=== PATIENT | male | born 1960 | race Caucasian/White ===

== ENCOUNTER 2016-10-04 14:54 | Outpatient (CLI) | payer MEDICARE | END 2016-10-04 14:55 | LOC: LABLEX 14:54 | PROVIDERS: ATTEND Family Medicine | DX: N20.0 Calculus of kidney (principal) | CPT/HCPCS: 82365 ==

== ENCOUNTER 2018-04-09 08:14 | Outpatient (CLI) | payer MEDICARE ==
--- NOTE | 2018-04-09 11:21 | CT ---
CT LUMBAR SPINE WITHOUT CONTRAST: DATE: 04/09/18. COMPARISON: Comparison was made with a 04/26/15 CT, as well as MRI of the same date. FINDINGS: The prior studies showed a soft tissue density in the left neural foramen which on MRI was shown to b e a prominent left L5 root with slight hyperintensity. The possibility for radiculitis was previousl y raised. Today's exam was done using axial slices, then coronal and sagittal reconstructions. The patient has an epidural stimulator in place. Posterior surgical fusion of L5-S1 with pedicle scr ews bilaterally is noted as before. The L1 through L4 levels were unremarkable with no evidence of f ocal disk protrusions, foraminal stenosis, or central canal stenosis. At L5-S1, there is once again a soft tissue density in the left neural foramen that is fairly compara ble in appearance to the 2015 scan. Normally, the possibility of bleeding or fibrosis might be raise d as well as a soft tissue mass, but given that there has been no change in the appearance over time, this seems somewhat less likely. An MRI might be considered to assess it further. Streak artifact is present at this level from the pedicle screws which does somewhat compromise the study. The total cross-section al area of the spinal canal at the L5 level is somewhat reduced, but no significantly different than before. 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 Other incidental findings on the scan included bilateral nonobstructing renal calculi. An inferior v juan jose cava filter is present with its tip at the T12 level where the renal veins joint the IVC. It has not changed in position since 2015. IMPRESSION: Soft tissue density in the left neural foramen at L5-S1 that is comparable to the appearance of the scan. MRI would probably give a better assessment of its current makeup in better detail, but there were no findings to suggest a dramatic change in the appearance of the area over time. POS: HOME
== END 2018-04-09 08:15 | disposition home or self-care (01) ==
LOC: BURCT 08:14
PROVIDERS: ATTEND Specialist
DX: M96.1 Postlaminectomy syndrome, not elsewhere classified (principal)
CPT/HCPCS: 72131

== ENCOUNTER 2018-05-09 12:14 | Emergency (ER) | payer MEDICARE | END 2018-05-09 13:41 | disposition home or self-care (01) | LOC: BURERS 12:14 | DX: M79.2 Neuralgia and neuritis, unspecified (principal); K21.9 Gastro-esophageal reflux disease without esophagitis; Z86.711 Personal history of pulmonary embolism; F41.9 Anxiety disorder, unspecified; Z79.899 Other long term (current) drug therapy | CPT/HCPCS: 99283 ==

== ENCOUNTER 2018-05-20 13:01 | Outpatient (CLI) | payer MEDICARE | END 2018-05-20 13:02 | disposition home or self-care (01) | LOC: BURRAD 13:01 | PROVIDERS: ATTEND Nurse Practitioner | DX: M25.571 Pain in right ankle and joints of right foot (principal) ==

== ENCOUNTER 2018-07-10 14:03 | Outpatient (CLI) | payer MEDICARE ==
--- NOTE | 2018-07-10 16:55 | RAD ---
CHEST TWO VIEWS: 07/10/18 Comparison is made with the 09/18/17 portable film from [facility]. The heart is normal in size. The lungs are clear. No infiltrate, effusion or pulmonary edema was pres ent. The mediastinum appears normal. The trachea is midline. Epidural stimulator leads are noted post eriorly. IMPRESSION: No acute thoracic finding. POS: HOME
== END 2018-07-10 14:04 | disposition home or self-care (01) ==
LOC: BURRAD 14:03
PROVIDERS: ATTEND Specialist
DX: R06.02 Shortness of breath (principal)
CPT/HCPCS: 71046

== ENCOUNTER 2018-09-19 12:03 | Emergency (ER) | payer MEDICARE ==
[2018-09-19] MEDS ORDERED: Fentanyl 100 MCG/2 ML VIAL ONE (12:29)
[2018-09-19 12:35] LABS: #Basophils 0.1 thou/uL (0.0-0.2); #Eosinphils 0.1 thou/uL (0.0-0.7); #Lymphocytes 2.4 thou/uL (1.20-3.40); #Monocytes 0.5 thou/uL (0.11-0.59); #Neutrophils 3.8 thou/uL (1.40-6.50); %Basophils 1.4 % (0.0-1.0); %Eosinophils 2.1 % (0.0-10.0); %Lymphocytes 34.8 % (21.0-51.0); %Neutrophils 54.7 % (42.0-75.0); Hemoglobin 15.6 g/dL (14.0-18.0); Mean Corpuscular Hemoglobin 32.7 pg (27.0-31.0); Mean Corpuscular Volume 93.4 fL (78.0-98.0); Platelet Count 250 thou/uL (130-400); RBC Distribution Width 11.6 % (11.5-14.5); Red Blood Cell (RBC) Count 4.77 mill/uL (4.70-6.10); White Blood Cell (WBC) Count 6.9 thou/uL (4.8-10.8)
[2018-09-19 12:46] LABS: Bilirubin Negative (Negative); Blood, Urine Negative (Negative); Clarity Clear (Clear); Glucose, Urine (Dipstick) Negative (Negative); Leukocyte Negative (Negative); Nitrite Negative (Negative); Protein, Urine (Dipstick) Negative (Neg-Trace); Specific Gravity, Urine 1.029 (1.005-1.030); Urobilinogen 0.2 mg/dL (0.2-1.0); pH, Urine 5.5 (5.0-9.0)
[2018-09-19] MEDS ORDERED: Ondansetron PF 4 MG/2 ML Vial ONE (12:51)
[2018-09-19 12:52] LABS: ALT (SGPT) 27 U/L (8-55); AST (SGOT) 25 U/L (5-34); Albumin 4.4 g/dL (3.5-5.0); Alkaline Phosphatase 99 U/L (40-150); Anion Gap 14 mmol/L (10-20); BUN (Urea Nitrogen) 15 mg/dL (8.4-25.7); Bilirubin, Total 0.8 mg/dL (0.2-1.2); Calc. Creatinine Clearance 0 mL/min (70-130); Calcium 9.5 mg/dL (7.8-10.44); Carbon Dioxide 24 mmol/L (22-29); Chloride 105 mmol/L (98-107); Estimated GFR-MDRD 81; Glucose 95 mg/dL (70-105); Lipase 10 U/L (8-78); Potassium 4.3 mmol/L (3.5-5.1); Protein, Total 7.4 g/dL (6.0-8.3); Sodium 139 mmol/L (136-145)
[2018-09-19] MEDS ORDERED: methylPREDNISolone Sod Succ/PF 125 MG/2 ML VIAL ONE (13:57)
--- NOTE | 2018-09-19 22:34 | CT ---
CT ABDOMEN AND PELVIS WITH CONTRAST 09/19/18 Comparison is made with a prior study of 04/05/16. Axial slices were acquired followed by coronal and sagittal reconstructions. The top most slices do n ot show the entirety of the dome of the liver. The lung bases are clear except for some minimal scarr ing or atelectasis. The liver, spleen, pancreas, adrenal glands, and kidneys showed no acute findings . There has been a prior cholecystectomy. A small nonobstructing calcification is seen in the lower p ole of the left kidney, not a new finding. Aorta is normal in caliber. An IVC filter is in place. [place] ws tip is at the level of the renal veins. The bowel shows no distention, bowel wall thickening, or gerald-intestinal inflammatory change. Diverti culosis is present without diverticulitis. The appendix appears normal. No free air or free fluid was seen. CT of the pelvis shows no pelvic masses, fluid collection, or inflammatory change. Prostate was upper normal in size at 4.9 cm in diameter. IMPRESSION: No acute abdominal findings to explain the patient's symptoms. POS: HOME
== END 2018-09-19 14:44 | disposition home or self-care (01) ==
LOC: BURERS 12:03
DX: R10.32 Left lower quadrant pain (principal); K21.9 Gastro-esophageal reflux disease without esophagitis; Z86.718 Personal history of other venous thrombosis and embolism; F41.9 Anxiety disorder, unspecified; Z79.899 Other long term (current) drug therapy
CPT/HCPCS: 74177; 80053; 81003; 83605; 83690; 85025; 85652; 90853; 96374; 96375; J2405; J2930; J3010

== ENCOUNTER 2019-03-03 09:34 | Emergency (ER) | payer MEDICARE ==
[2019-03-03] MEDS ORDERED: HYDROmorphone 0.5 MG/0.5 ML SYRINGE ONE ×2 (10:06→11:09)
--- NOTE | 2019-03-03 18:14 | RAD ---
PELVIS ONE VIEW: 03/03/2019 FINDINGS: No fractures are seen. Some mild arthritic change is seen in the right hip. A total hip arthroplast y is seen on the left, and is unremarkable in appearance. The SI joints are symmetrical. The symphy sis shows no widening or offset. IMPRESSION: No significant finding. POS: HOME
--- NOTE | 2019-03-03 18:15 | RAD ---
LEFT HIP THREE VIEWS: 03/03/2019 COMPARISON: 02/06/2013 FINDINGS: There is a normal postoperative appearance to the left hip arthroplasty. There is no sign of looseni ng or infection around the hardware. There were no particular findings to explain pain. IMPRESSION: No significant findings. POS: HOME
== END 2019-03-03 11:20 | disposition home or self-care (01) ==
LOC: BURERS 09:34
DX: M25.552 Pain in left hip (principal); M79.89 Other specified soft tissue disorders; K50.90 Crohn's disease, unspecified, without complications; F41.9 Anxiety disorder, unspecified; F32.9 Major depressive disorder, single episode, unspecified; M19.90 Unspecified osteoarthritis, unspecified site; Z86.718 Personal history of other venous thrombosis and embolism; Z79.899 Other long term (current) drug therapy; Z79.1 Long term (current) use of non-steroidal anti-inflammatories (NSAID)
CPT/HCPCS: 72170; 96372; J1170

== ENCOUNTER 2019-10-14 18:29 | Emergency (ER) | payer MEDICARE ==
[2019-10-14 19:02] LABS: Bilirubin Negative (Negative); Blood, Urine Large (Negative); Clarity Clear (Clear); Glucose, Urine (Dipstick) Negative (Negative); Leukocyte Negative (Negative); Nitrite Negative (Negative); Protein, Urine (Dipstick) Negative (Neg-Trace); Urobilinogen 0.2 mg/dL (Less than 2)
[2019-10-14] MEDS ORDERED: Ondansetron PF 4 MG/2 ML Vial ONE (19:05)
[2019-10-14] MEDS ORDERED: Ketorolac Tromethamine 30 MG/ML VIAL ONE (19:05)
[2019-10-14 19:06] LABS: Bacteria/HPF None Seen HPF (None Seen); Broad Cast None Seen LPF (None Seen); Calcium Oxalate Crystals None Seen HPF (None Seen); Cellular Cast None Seen LPF (None Seen); Epithelial Cast None Seen LPF (None Seen); Fatty Cast None Seen LPF (None Seen); Mucous/LPF None Seen LPF (<2+); Other Casts None Seen LPF (None Seen); Oval Fat Bodies/HPF None Seen HPF (None Seen); Red Blood Cell Cast None Seen LPF (None Seen); Renal Epithelial None Seen HPF (None Seen); Sperm/HPF None Seen HPF (None Seen); Squamous Epithelial None Seen HPF (0-3); Transitional Epithelial None Seen HPF (None Seen); Trichomonas/HPF None Seen HPF (None Seen); Triple Phosphate Crystal None Seen HPF (None Seen); Unclassified Crystals None Seen HPF (None Seen); WBC/HPF None Seen HPF (0-3); Waxy Cast None Seen LPF (None Seen); White Blood Cell Cast None Seen LPF (None Seen); Yeast-Budding None Seen HPF (None Seen); Yeast-Hyphae None Seen HPF (None Seen)
[2019-10-14 19:30] LABS: #Basophils 0.1 thou/uL (0.0-0.2); #Eosinphils 0.1 thou/uL (0.0-0.7); #Lymphocytes 1.4 thou/uL (1.20-3.40); #Monocytes 0.6 thou/uL (0.11-0.59); #Neutrophils 3.5 thou/uL (1.40-6.50); %Basophils 1.3 % (0.0-1.0); %Eosinophils 2.1 % (0.0-10.0); %Lymphocytes 24.6 % (21.0-51.0); %Monocytes 10.1 % (0.0-10.0); %Neutrophils 61.9 % (42.0-75.0); Hemoglobin 14.1 g/dL (14.0-18.0); Mean Corpuscular HGB CONC 34.1 g/dL (32.0-36.0); Mean Corpuscular Hemoglobin 32.7 pg (27.0-31.0); Mean Platelet Volume 7.2 fL (7.4-10.4); Platelet Count 225 thou/uL (130-400); RBC Distribution Width 11.9 % (11.5-14.5); White Blood Cell (WBC) Count 5.6 thou/uL (4.8-10.8)
[2019-10-14 19:31] LABS: Anion Gap 13 mmol/L (10-20); BUN (Urea Nitrogen) 12 mg/dL (8.4-25.7); Calc. Creatinine Clearance 0 mL/min (70-130); Calcium 8.7 mg/dL (7.8-10.44); Carbon Dioxide 26 mmol/L (22-29); Chloride 105 mmol/L (98-107); Estimated GFR-MDRD 89; Glucose 96 mg/dL (70-105); Potassium 3.9 mmol/L (3.5-5.1); Sodium 140 mmol/L (136-145)
--- NOTE | 2019-10-14 19:46 | CT ---
CT of abdomen and pelvis: 10/14/2019 COMPARISON: None HISTORY: Hematuria, bilateral flank pain TECHNIQUE: Axial CT imaging at 5 mm intervals from lung bases through pubic symphysis without contras t. Coronal reformatted imaging obtained. FINDINGS: Lack of contrast media limits assessment of the viscera, bowel, vascular structures, and fo r lymphadenopathy. The imaged lung bases are unremarkable. Cholecystectomy clips are noted. No free intraperitoneal air or fluid. There is an IVC filter present. The patient is status post left hip arthroplasty and status post lumb ar spine fusion at the lumbosacral junction. Numerous dorsal column stimulating leads are present extending into the S1 neural foramen on the left as well as through the left neural foramen at T12-L1 , L1-2, and L4-5. The hepatic parenchyma is grossly unremarkable. The spleen, pancreas, and adrenal glands demonstrate no acute findings. Nonobstructing stone within the anterior midpole of the left kidney noted measuring 4 mm. Nonobstructing stone in lower pole of the left kidney measures 6-7 mm. No evidence fo r obstructive uropathy is appreciated on the left. There is a punctate nonobstructing stone in the mid pole and lower pole of right kidney. There is a s tone within the proximal right ureter just distal to the right ureterovesicular junction with no significant hydronephrosis. This stone within the proximal right ureter measures 3-4 mm. Nonspecific inguinal lymphadenopathy on the left noted, measuring 1.9 cm in short axis dimension. Frausto ited assessment of the bowel demonstrates no evidence for inflammatory change or obstruction. The appendix is unremarkable. No acute osseous abnormality is noted. No worrisome lytic or blastic bone lesion. IMPRESSION: Bilateral nephrolithiasis. 3-4 mm stone within the proximal right ureter with no associat ed hydronephrosis. Nonspecific inguinal lymphadenopathy on the left.
== END 2019-10-14 20:00 | disposition home or self-care (01) ==
LOC: BURERS 18:29
DX: N20.2 Calculus of kidney with calculus of ureter (principal); R11.0 Nausea; K50.90 Crohn's disease, unspecified, without complications; K21.9 Gastro-esophageal reflux disease without esophagitis; F41.9 Anxiety disorder, unspecified; M19.90 Unspecified osteoarthritis, unspecified site; Z86.718 Personal history of other venous thrombosis and embolism; Z79.899 Other long term (current) drug therapy; Z79.1 Long term (current) use of non-steroidal anti-inflammatories (NSAID)
CPT/HCPCS: 74176; 80048; 81003; 81015; 85025; 96361; 96374; 96375; J1885; J2405

== ENCOUNTER 2019-12-31 08:54 | Outpatient (CLI) | payer MEDICARE ==
--- NOTE | 2019-12-31 16:33 | CT ---
CT ABDOMEN AND PELVIS WITHOUT CONTRAST: 12/31/19 POS: HOME
== END 2019-12-31 08:55 | disposition home or self-care (01) ==
LOC: BURCT 08:54
PROVIDERS: ATTEND Urology
DX: N20.0 Calculus of kidney (principal)
CPT/HCPCS: 74176

== ENCOUNTER 2021-09-21 14:23 | Emergency (ER) | payer MEDICARE | END 2021-09-21 15:35 | disposition home or self-care (01) | LOC: BURERS 14:23 | DX: M54.50 Low back pain, unspecified (principal); K21.9 Gastro-esophageal reflux disease without esophagitis; M19.90 Unspecified osteoarthritis, unspecified site; V43.52XA Car driver injured in collision with other type car in traffic accident, initial encounter; W22.10XA Striking against or struck by unspecified automobile airbag, initial encounter; Z86.718 Personal history of other venous thrombosis and embolism; Z87.19 Personal history of other diseases of the digestive system; Z79.899 Other long term (current) drug therapy | CPT/HCPCS: 70450; 72100; 72125 ==

== ENCOUNTER 2021-11-28 08:38 | Outpatient (CLI) | payer MEDICARE | END 2021-11-28 08:39 | disposition home or self-care (01) | LOC: BURCT 08:38 | PROVIDERS: ATTEND Nurse Practitioner Family | DX: M54.12 Radiculopathy, cervical region (principal); M48.02 Spinal stenosis, cervical region | CPT/HCPCS: 72125 ==

== ENCOUNTER 2022-03-13 14:49 | Emergency (ER) | payer MEDICARE ==
[2022-03-13] MEDS ORDERED: HYDROmorphone 0.5 MG/0.5 ML SYRINGE ONE (15:20)
[2022-03-13 15:36] LABS: #Basophils 0.1 thou/uL (0.0-0.2); #Eosinphils 0.1 thou/uL (0.0-0.7); #Lymphocytes 2.1 thou/uL (1.20-3.40); #Monocytes 0.7 thou/uL (0.11-0.59); #Neutrophils 6.9 thou/uL (1.40-6.50); %Lymphocytes 20.9 % (21.0-51.0); Hemoglobin 16.3 g/dL (14.0-18.0); Mean Corpuscular HGB CONC 34.5 g/dL (32.0-36.0); Mean Corpuscular Hemoglobin 32.7 pg (27.0-31.0); Mean Corpuscular Volume 94.7 fL (78.0-98.0); Platelet Count 283 thou/uL (130-400); RBC Distribution Width 11.8 % (11.5-14.5); Red Blood Cell (RBC) Count 4.99 mill/uL (4.70-6.10); White Blood Cell (WBC) Count 9.8 thou/uL (4.8-10.8)
[2022-03-13 15:45] LABS: Chloride 101 mmol/L (98-107); Potassium 4.7 mmol/L (3.5-5.1); Sodium 141 mmol/L (136-145)
[2022-03-13 16:00] LABS: ALT (SGPT) 17 U/L (8-55); AST (SGOT) 13 U/L (5-34); Albumin 4.1 g/dL (3.5-5.0); Alkaline Phosphatase 100 U/L (40-110); BUN (Urea Nitrogen) 18 mg/dL (8.4-25.7); Bilirubin, Total 1.4 mg/dL (0.2-1.2); CRP (Inflammatory) Less than 0.50 mg/dL (= or < 0.5); Calc. Creatinine Clearance 0 mL/min (70-130); Calcium 9.6 mg/dL (7.8-10.44); Carbon Dioxide 30 mmol/L (22-29); Estimated GFR 77; Globulin 2.9 g/dL (2.4-3.5); Glucose 101 mg/dL (70-105)
[2022-03-13 16:02] LABS: Anion Gap 15 mmol/L (10-20)
[2022-03-13 16:29] LABS: Bilirubin Negative (Negative); Blood, Urine Negative (Negative); Clarity Clear (Clear); Glucose, Urine (Dipstick) Negative (Negative); Ketone, Urine Negative (Negative); Leukocyte Negative (Negative); Nitrite Negative (Negative); Protein, Urine (Dipstick) Negative (Neg-Trace); Specific Gravity, Urine 1.031 (1.002-1.036); Urobilinogen 0.2 mg/dL (Less than 2); pH, Urine 5.5 (5.0-9.0)
== END 2022-03-13 17:30 | disposition home or self-care (01) ==
LOC: BURERS 14:49
DX: M54.10 Radiculopathy, site unspecified (principal); M25.552 Pain in left hip; M79.89 Other specified soft tissue disorders; K21.9 Gastro-esophageal reflux disease without esophagitis
CPT/HCPCS: 80053; 81003; 85025; 86140; 96374; J1170

== ENCOUNTER 2022-08-15 09:37 | Emergency (ER) | payer MEDICARE ==
[2022-08-15 10:05] LABS: #Basophils 0.1 thou/uL (0.0-0.2); #Eosinphils 0.2 thou/uL (0.0-0.7); #Monocytes 0.4 thou/uL (0.11-0.59); #Neutrophils 3.8 thou/uL (1.40-6.50); %Eosinophils 3.1 % (0.0-10.0); %Lymphocytes 30.3 % (21.0-51.0); %Monocytes 6.8 % (0.0-10.0); %Neutrophils 58.7 % (42.0-75.0); Hemoglobin 16.4 g/dL (14.0-18.0); Mean Corpuscular HGB CONC 34.1 g/dL (32.0-36.0); Mean Corpuscular Hemoglobin 33.1 pg (27.0-31.0); Platelet Count 278 10x3/uL (130-400); RBC Distribution Width 11.4 % (11.5-14.5); Red Blood Cell (RBC) Count 4.96 mill/uL (4.70-6.10); White Blood Cell (WBC) Count 6.5 10x3/uL (4.8-10.8)
[2022-08-15] MEDS ORDERED: Ketorolac Tromethamine 30 MG/ML VIAL ONE (10:12)
[2022-08-15 10:34] LABS: ALT (SGPT) 26 U/L (8-55); AST (SGOT) 23 U/L (5-34); Albumin 4.4 g/dL (3.5-5.0); Alkaline Phosphatase 91 U/L (40-110); Anion Gap 13 mmol/L (10-20); BUN (Urea Nitrogen) 13 mg/dL (8.4-25.7); Bilirubin, Total 1.3 mg/dL (0.2-1.2); Calc. Creatinine Clearance 0 mL/min (70-130); Carbon Dioxide 27 mmol/L (22-29); Chloride 107 mmol/L (98-107); Estimated GFR 95; Globulin 2.8 g/dL (2.4-3.5); Glucose 103 mg/dL (70-105); Protein, Total 7.2 g/dL (6.0-8.3); Sodium 143 mmol/L (136-145)
[2022-08-15 10:34] LABS: Bilirubin Moderate (Negative); Blood, Urine Large (Negative); Clarity Cloudy (Clear); Glucose, Urine (Dipstick) 100 mg/dL (Negative); Ketone, Urine 15 mg/dL (Negative); Leukocyte Negative (Negative); Nitrite Negative (Negative); Protein, Urine (Dipstick) > or equal to 300 mg/dL (Neg-Trace); pH, Urine 5.5 (5.0-9.0)
[2022-08-15 10:35] LABS: Specific Gravity, Urine 1.031 (1.002-1.036)
[2022-08-15 10:44] LABS: Bacteria/HPF 1+ HPF (None Seen); WBC/HPF 0-3 HPF (0-3)
[2022-08-15] MEDS ORDERED: Fentanyl 100 MCG/2 ML VIAL ONE (10:54)
[2022-08-15] MEDS ORDERED: Cephalexin 250 MG CAP ONE (11:08)
== END 2022-08-15 11:29 | disposition home or self-care (01) ==
LOC: BURERS 09:37
DX: N39.0 Urinary tract infection, site not specified (principal); R31.9 Hematuria, unspecified; K21.9 Gastro-esophageal reflux disease without esophagitis; Z86.718 Personal history of other venous thrombosis and embolism; Z79.899 Other long term (current) drug therapy
CPT/HCPCS: 74176; 80053; 81003; 81015; 85025; 96374; 96375; J1885; J3010

== ENCOUNTER 2022-09-05 13:30 | Outpatient (CLI) | payer MEDICARE, OTHER | END 2022-09-05 13:31 | disposition home or self-care (01) | LOC: BURCT 13:30 | PROVIDERS: ATTEND Urology | DX: N20.2 Calculus of kidney with calculus of ureter (principal) | CPT/HCPCS: 74176 ==

== ENCOUNTER 2024-02-11 13:02 | Emergency (ER) | payer MEDICARE ==
[2024-02-11] MEDS ORDERED: Ketorolac Tromethamine 30 MG (1 mL) VIAL ONE (13:48)
[2024-02-11 13:56] LABS: #Basophils 0.1 thou/uL (0.0-0.2); #Eosinphils 0.2 thou/uL (0.0-0.7); #Lymphocytes 1.8 thou/uL (1.20-3.40); #Monocytes 0.6 thou/uL (0.11-0.59); #Neutrophils 5.4 thou/uL (1.40-6.50); %Basophils 0.8 % (0.0-1.0); %Eosinophils 2.2 % (0.0-10.0); %Monocytes 7.5 % (0.0-10.0); %Neutrophils 67.6 % (42.0-75.0); Hematocrit 44.3 % (42.0-52.0); Hemoglobin 15.1 g/dL (14.0-18.0); Mean Corpuscular Hemoglobin 31.7 pg (27.0-31.0); Mean Corpuscular Volume 93.1 fl (78.0-98.0); Mean Platelet Volume 6.1 fL (7.4-10.4); Platelet Count 251 10x3/uL (130-400); RBC Distribution Width 11.5 % (11.5-14.5); Red Blood Cell (RBC) Count 4.76 mill/uL (4.70-6.10)
[2024-02-11 14:10] LABS: ALT (SGPT) 24 U/L (8-55); AST (SGOT) 18 U/L (5-34); Albumin 4.1 g/dL (3.4-4.8); Alkaline Phosphatase 99 U/L (40-110); Anion Gap 12 mmol/L (10-20); BUN (Urea Nitrogen) 16 mg/dL (8.4-25.7); Bilirubin, Total 0.7 mg/dL (0.2-1.2); Calc. Creatinine Clearance 0 mL/min (70-130); Calcium 9.3 mg/dL (7.8-10.44); Carbon Dioxide 24 mmol/L (23-31); Chloride 107 mmol/L (98-107); Estimated GFR 75; Globulin 2.7 g/dL (2.4-3.5); Glucose 92 mg/dL (80-115); Potassium 4.3 mmol/L (3.5-5.1); Protein, Total 6.8 g/dL (5.8-8.1); Sodium 139 mmol/L (136-145)
[2024-02-11] MEDS ORDERED: Boostrix 0.5 ML (Tdap) VIAL (>/=7 yrs of age) ONE (14:56)
== END 2024-02-11 15:04 | disposition home or self-care (01) ==
LOC: BURERS 13:02
DX: S91.052D Open bite, left ankle, subsequent encounter (principal); L08.9 Local infection of the skin and subcutaneous tissue, unspecified; W55.01XD Bitten by cat, subsequent encounter; Z23 Encounter for immunization
CPT/HCPCS: 73610; 80053; 85025; 90715; J1885; 36415; 90471; 96374

== ENCOUNTER 2025-04-14 14:03 | Emergency (ER) | payer MEDICARE ==
[2025-04-14] MEDS ORDERED: Orphenadrine Citrate 60 MG/2 ML VIAL ONE (14:25)
== END 2025-04-14 15:08 | disposition home or self-care (01) ==
LOC: BURERS 14:03
DX: M54.6 Pain in thoracic spine (principal); G89.29 Other chronic pain
CPT/HCPCS: 72131; J1885; J2360; 96372